=== PATIENT | male | born 1980 | race Caucasian/White ===

== ENCOUNTER 2018-08-05 15:37 | Emergency (ER) | payer OTHER ==
[~2018-08-05] VITALS: Ht 180.3 cm; Wt 79.5 kg
[2018-08-05] MEDS ORDERED: METF-960 PO (15:53)
[2018-08-05 15:54] LABS: GLUCOSE,POINT OF CARE 361 MG/DL (70-110)
[2018-08-05 18:37] VITALS: BP 130/78
== END 2018-08-05 18:38 | disposition home or self-care (01) ==
LOC: EMS 15:39
DX: S31.21XA Laceration without foreign body of penis, initial encounter (principal); E11.9 Type 2 diabetes mellitus without complications; Z79.84 Long term (current) use of oral hypoglycemic drugs; X58.XXXA Exposure to other specified factors, initial encounter; Y93.89 Activity, other specified; Y92.89 Other specified places as the place of occurrence of the external cause; Y99.8 Other external cause status
CPT/HCPCS: 99283